=== PATIENT | female | born 1945 | race Two or more races ===

== ENCOUNTER 2019-08-28 06:10 | Day surgery (SDC) | payer OTHER ==
[~2019-08-28 06:10] MED LIST: DILTIAZEM ER180 M3 PO; ESTAZOLAM2 MG PO; LEXAPRO20 MG PO; NOXIFOL-D32500 UNIT PO
[2019-08-28] MEDS ORDERED: RECTICARE30 GM TOP (08:24)
[2019-08-28] MEDS ORDERED: PERCOCET 5-3251 EACH PO (08:24)
== END 2019-08-28 14:15 | disposition home or self-care (01) ==
LOC: CIR.AMB 06:10
PROVIDERS: ATTEND Surgery
DX: K62.82 Dysplasia of anus (principal); A63.0 Anogenital (venereal) warts
CPT/HCPCS: 0184T; 64430